=== PATIENT | male | born 1960 | race Caucasian/White ===

== ENCOUNTER → 2025-07-13 | Outpatient (CLI) | payer OTHER, SELFPAY ==
--- NOTE | 2025-07-13 08:20 | RAD_ITS ---
PROCEDURE: L/S SPINE MIN 4 VIEWS 07/13/2025 REASON FOR EXAM: PSORIATIC ARTHROPATHY TECHNIQUE: Procedure Code: RADSPLS Modality: DX Procedure: L/S SPINE MIN 4 VIEWS COMPARISON: None FINDINGS: There is anatomic alignment of the lumbar spine. No demonstrated fracture or suspicious osseous lesion Disc spaces well-preserved Mild age consistent hip joint arthrosis without subchondral changes Normal SI joints, no sclerotic changes RAD/L/S Spine Min 4 Views IMPRESSION: No acute abnormalities Reading Location: [id number]
--- NOTE | 2025-07-13 08:20 | RAD_ITS ---
PROCEDURE: PELVIS 1 OR 2 VIEWS 07/13/2025 REASON FOR EXAM: PSORIATIC ARTHROPATHY TECHNIQUE: Procedure Code: RADPEL Modality: DX Procedure: AP PELVIS 1 VIEW COMPARISON: None. RAD/Pelvis 1 or 2 Views IMPRESSION: Degenerative changes are seen of the visualized lower lumbar spine. Sacroiliac joints appear symmetric and within the normal range for age. Minimal left hip degenerative changes are seen, without evidence of joint narro wing. No evidence of femoral head osteonecrosis. No erosive process is seen. No fracture, dislocation, or other significant osseous or joint space abnormali ty is evident. Reading Location: [id number]
== END | disposition home or self-care (01) ==
LOC: MTRAD 08:18
PROVIDERS: PCP Student in an Organized Health Care Education/Training Program; Referring Provider Internal Medicine Rheumatology; Visit Provider Internal Medicine Rheumatology
DX: L40.59 Other psoriatic arthropathy (principal); L40.8 Other psoriasis; Z79.899 Other long term (current) drug therapy
CPT/HCPCS: 72110; 72170